=== PATIENT | female | born 1985 | race American Indian/Alaskan Native ===

== ENCOUNTER → 2017-08-23 | Emergency (ER) | payer SELFPAY | END | disposition left against medical advice (07) | LOC: ED 14:35 | DX: K08.89 Other specified disorders of teeth and supporting structures (principal); Z53.21 Procedure and treatment not carried out due to patient leaving prior to being seen by health care provider ==

== ENCOUNTER 2017-09-20 01:41 | Emergency (ER) | payer OTHER ==
[2017-09-20] MEDS ORDERED: TYLENOL PO ONE (02:29)
[2017-09-20] MEDS ORDERED: TORADOL IM ONE (03:54)
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
[2017-09-20 04:14] LABS: HCG Qualitative,Urine Negative (Negative)
[2017-09-20 04:16] LABS: Bilirubin,Urine NEG (Negative); Blood,Urine NEG (Negative); Color,Urine Yellow (Yellow); Mucus,Urine 3+ /HPF; Protein,Urine <15 mg/dL mg/dL (Negative)
[2017-09-20 04:43] VITALS: BP 123/69
== END 2017-09-20 04:44 | disposition home or self-care (01) ==
LOC: ED 01:41
DX: S16.1XXA Strain of muscle, fascia and tendon at neck level, initial encounter (principal); V87.7XXA Person injured in collision between other specified motor vehicles (traffic), initial encounter; Y93.89 Activity, other specified; Y92.89 Other specified places as the place of occurrence of the external cause; Y99.8 Other external cause status
CPT/HCPCS: 81001; 81025; 96372; 99283; J1885

== ENCOUNTER 2020-04-19 19:27 | Emergency (ER) | payer OTHER ==
[2020-04-19 20:09] LABS: Basophils % (Auto) 0.5 % (0.0-1.8); Eosinophils % (Auto) 0.5 % (0.0-4.3); Hematocrit 33.5 % (30.3-42.9); Lymphocytes # (Auto) 2.4 K/mm3 (1.2-5.4); Lymphocytes % (Auto) 27.7 % (13.4-35.0); Mean Corpuscular HGB Conc 36 % (30-34); Mean Corpuscular Volume 98 fl (79-97); Monocytes # (Auto) 0.5 K/mm3 (0.0-0.8); Monocytes % (Auto) 6.1 % (0.0-7.3); Platelet Count 300 K/mm3 (140-440); Red Blood Count 3.43 M/mm3 (3.65-5.03); Red Cell Distribution Width 13.4 % (13.2-15.2)
[2020-04-19 20:25] LABS: Bacteria,Urine 1+ /HPF (Negative); Bilirubin,Urine NEG (Negative); Blood,Urine NEG (Negative); Color,Urine Yellow (Yellow); Mucus,Urine 3+ /HPF
[2020-04-19 20:30] LABS: Alanine Aminotransferase 14 units/L (7-56); Albumin 4.7 g/dL (3.9-5); BUN/Creatinine Ratio 20; Blood Urea Nitrogen 10 mg/dL (7-17); Calcium 9.7 mg/dL (8.4-10.2); Hemolysis Index 1
[2020-04-19] MEDS ORDERED: SODIUM CHLORIDE 0.9% 1000 ML 1,000 ML IV ONE (21:06)
--- NOTE | 2020-04-19 21:11 | Emergency Department Report ---
ED General Adult HPI - General Chief complaint: Nausea/Vomiting/Diarrhea Stated complaint: BODY ACHE/EMESIS/DIZZINESS PUI?: No Time Seen by Provider: 04/19/20 21:05 Source: patient Mode of arrival: Ambulatory Limitations: No Limitations - History of Present Illness Initial comments: Patient is a 34-year-old female that presents emergency room with complaints of nausea vomiting, dizziness, body aches. Patient denies fever. Patient denies cough. Patient denies abdominal pain. Patient states she might be . Patient states her last period was 6 weeks ago. Patient states she is a G6, . Patient denies vaginal discharge. Patient denies dysuria. Patient denies chest pain and shortness of breath. Patient states her body ache and dizziness are better with rest and worse with exertion. Patient states her nausea is better with n.p.o. and worse with eating. Patient denies blood in her stool. Patient denies blood in her vomitus. Patient denies recent travel. Patient denies recent international travel. Patient denies exposure to the novel coronavirus. Patient denies sick contacts. Patient denies fever. Patient denies cough. Patient denies diarrhea. Patient denies coming in contact with anybody with symptoms of the novel coronavirus. -: Sudden Severity scale (0 -10): 4 Quality: aching Consistency: constant Improves with: rest Worsens with: movement Associated Symptoms: nausea/vomiting. denies: confusion, chest pain, cough, diaphoresis, headaches, loss of appetite, malaise - Related Data Previous Rx's Medication Instructions Recorded Last Taken Type Cyclobenzaprine [Flexeril] 10 mg PO BID PRN #20 tablet 09/20/17 Unknown Rx Menthol/Camphor [[place] 1 applicatio TP BID PRN #1 tube 09/20/17 Unknown Rx Ointment] Naproxen [Naprosyn TAB] 500 mg PO BID PRN #30 tablet 09/20/17 Unknown Rx Ferrous Sulfate [Feosol 325 MG tab] 325 mg PO BID 30 Days #60 tablet 04/03/18 Unknown Rx miSOPROStoL [Misoprostol] 200 mcg PO Q4H 3 Days #6 tablet 04/03/18 Unknown Rx oxyCODONE /ACETAMINOPHEN [Percocet 1 tab PO Q6HR PRN #20 tablet 04/03/18 Unknown Rx 5/325] Ibuprofen [Motrin 800 MG tab] 800 mg PO Q8HR PRN #30 tablet 08/22/19 Unknown Rx Nystas/Diphen/Xyl Visc/Mylanta 15 ml MM Q6H PRN #120 ml 08/22/19 Unknown Rx [Magic Mouthwash] Amoxicillin [Trimox CAP] 500 mg PO Q8H #21 capsule 04/20/20 Unknown Rx Ondansetron [Zofran Odt] 4 mg PO Q6HR PRN #20 tab.rapdis 04/20/20 Unknown Rx Allergies Allergy/AdvReac Type Severity Reaction Status Date / Time No Known Allergies Allergy Verified 04/03/18 11:00 ED Review of Systems ROS: Stated complaint: BODY ACHE/EMESIS/DIZZINESS Other details as noted in HPI Constitutional: see HPI Eyes: denies: eye pain, eye discharge, vision change ENT: denies: ear pain, throat pain Respiratory: denies: cough, shortness of breath, wheezing Cardiovascular: denies: chest pain, palpitations Endocrine: no symptoms reported Gastrointestinal: nausea, vomiting. denies: abdominal pain, diarrhea, constipation, hematemesis, melena, hematochezia Genitourinary: denies: urgency, dysuria, discharge Musculoskeletal: denies: back pain, joint swelling, arthralgia Skin: denies: rash, lesions Neurological: as per HPI. denies: headache, weakness, paresthesias Psychiatric: denies: anxiety, depression Hematological/Lymphatic: denies: easy bleeding, easy bruising ED Past Medical Hx - Past Medical History Previous Medical History?: No - Surgical History Past Surgical History?: No Additional Surgical History: - Family History Family history: no significant - Social History Smoking Status: Never Smoker Substance Use Type: None - Medications Home Medications: Home Medications Medication Instructions Recorded Confirmed Last Taken Type Cyclobenzaprine [Flexeril] 10 mg PO BID PRN #20 tablet 09/20/17 Unknown Rx Menthol/Camphor [[place] 1 applicatio TP BID PRN #1 tube 09/20/17 Unknown Rx Ointment] Naproxen [Naprosyn TAB] 500 mg PO BID PRN #30 tablet 09/20/17 Unknown Rx Ferrous Sulfate [Feosol 325 MG tab] 325 mg PO BID 30 Days #60 tablet 04/03/18 Unknown Rx miSOPROStoL [Misoprostol] 200 mcg PO Q4H 3 Days #6 tablet 04/03/18 Unknown Rx oxyCODONE /ACETAMINOPHEN [Percocet 1 tab PO Q6HR PRN #20 tablet 04/03/18 Unknown Rx 5/325] Ibuprofen [Motrin 800 MG tab] 800 mg PO Q8HR PRN #30 tablet 08/22/19 Unknown Rx Nystas/Diphen/Xyl Visc/Mylanta 15 ml MM Q6H PRN #120 ml 08/22/19 Unknown Rx [Magic Mouthwash] Amoxicillin [Trimox CAP] 500 mg PO Q8H #21 capsule 04/20/20 Unknown Rx Ondansetron [Zofran Odt] 4 mg PO Q6HR PRN #20 tab.rapdis 04/20/20 Unknown Rx ED Physical Exam - General Limitations: No Limitations General appearance: alert, in no apparent distress - Head Head exam: Present: atraumatic, normocephalic - Eye Eye exam: Present: normal appearance - ENT ENT exam: Present: mucous membranes moist - Neck Neck exam: Present: normal inspection - Respiratory Respiratory exam: Present: normal lung sounds bilaterally. Absent: respiratory distress - Cardiovascular Cardiovascular Exam: Present: regular rate, normal rhythm. Absent: systolic murmur, diastolic murmur, rubs, gallop - GI/Abdominal GI/Abdominal exam: Present: soft, normal bowel sounds. Absent: distended, tenderness, guarding - Rectal Rectal exam: Present: deferred - Extremities Exam Extremities exam: Present: normal inspection - Back Exam Back exam: Present: normal inspection, muscle spasm. Absent: tenderness - Neurological Exam Neurological exam: Present: alert, oriented X3 - Psychiatric Psychiatric exam: Present: normal affect, normal mood - Skin Skin exam: Present: warm, dry, intact, normal color. Absent: rash ED Course Vital Signs 04/19/20 04/19/20 04/19/20 19:34 20:55 21:00 Temperature 98.3 F Pulse Rate 83 61 65 Respiratory 20 17 17 Rate Blood Pressure 121/69 103/58 108/59 Blood Pressure 103/58 [Left] O2 Sat by Pulse 100 100 100 Oximetry 04/19/20 04/19/20 04/19/20 21:30 21:46 22:00 Temperature Pulse Rate 76 66 70 Respiratory 13 14 17 Rate Blood Pressure 107/68 96/44 95/51 Blood Pressure [Left] O2 Sat by Pulse 100 100 100 Oximetry 04/19/20 23:00 Temperature Pulse Rate 76 Respiratory 18 Rate Blood Pressure 97/54 Blood Pressure [Left] O2 Sat by Pulse 100 Oximetry - Reevaluation(s) Reevaluation #1: Patient states her nausea is better. Patient tolerated p.o. intake. Patient states she is feeling better. 04/19/20 22:18 Reevaluation #2: I discussed results with patient. I discussed the need for an ultrasound with patient. Patient agrees with plan of care. 04/19/20 23:18 Reevaluation #3: Patient states she is feeling much better. Patient denies dizziness. Patient denies nausea and vomiting. Patient denies body aches. Patient still tolerating p.o. intake. I discussed all results and clinical findings with patient. I discussed plan of care with patient. Patient agrees with plan of care. Patient is stable for discharge. Patient will be discharged home. Patient given discharge instructions. Patient voiced understanding of discharge instructions. 04/20/20 00:12 ED Medical Decision Making - Lab Data Result diagrams: 04/19/20 19:55 04/19/20 19:55 - Radiology Data Radiology results: report reviewed ULTRASOUND OBSTETRIC INDICATION / CLINICAL INFORMATION: PREG. N/V. TECHNIQUE: Transabdominal. COMPARISON: None available. FINDINGS: GESTATIONAL SAC: Well-defined oval shape and intrauterine in location. YOLK SAC: No significant abnormality. EMBRYO/FETUS: No significant abnormality. - [place]-Rump Length = 2.0 cm = 8 weeks, 4 day(s). - Heart Rate, beats per minute (if present) = 185 ADNEXA: 1.8 cm right ovarian follicular cyst. FREE FLUID: None. ADDITIONAL FINDINGS: Cervical length 5.9 cm IMPRESSION: 1. Single, living intrauterine with estimated sonographic age of 8 weeks, 4 day(s). - Medical Decision Making Patient is a 35-year-old female that presents emergency room with complaints of dizziness, nausea and vomiting and body aches. Patient given fluids and antiemetics. Patient's symptoms essentially resolved prior to discharge. Patient had labs done which were essentially unremarkable except for a positive hCG. Patient had an elevated serum quantitative hCG. Patient had a transvaginal ultrasound to rule out or rule in IUP. Patient's ultrasound was positive for an 8 weeks IUP. Patient is stable for discharge. Patient given discharge instructions. - Differential Diagnosis iup, n/v, gastroenteritis, uti, dizziness Critical care attestation.: If time is entered above; I have spent that time in minutes in the direct care of this critically ill patient, excluding procedure time. ED Disposition Clinical Impression: Dizziness, Nausea and vomiting during prior to 22 weeks gestation Qualifiers: Weeks of gestation: 8 weeks Qualified Code(s): Z3A.08 - 8 weeks gestation of UTI (urinary tract infection) Qualifiers: Urinary tract infection type: acute cystitis Hematuria presence: with hematuria Qualified Code(s): N30.01 - Acute cystitis with hematuria Disposition: TO HOME OR SELFCARE Is pt being admited?: No Does the pt Need Aspirin: No Condition: Stable Instructions: (ED), Hyperemesis Gravidarum (ED), Morning Sickness (ED), Threatened Miscarriage (ED), Urinary Tract Infection in Women (ED) Additional Instructions: Patient to follow-up with primary care in 2 to 3 days. Patient to follow-up with [facility] in 2 to 3 days. Patient to rest. Patient to increase water. Patient to avoid strenuous exercise or heavy lifting until cleared by [facility]. Nothing per vagina until cleared by [facility]. Patient started a vitamin. Patient to take Tylenol as needed for pain. Patient to take meds as directed. Patient to return to the ER if condition worsens, changes or new symptoms arise. Prescriptions: Amoxicillin [Trimox CAP] 500 mg PO Q8H #21 capsule Ondansetron [Zofran Odt] 4 mg PO Q6HR PRN #20 tab.rapdis PRN Reason: Nausea And Vomiting Referrals: PRIMARY CARE, [Primary Care Provider] - 2-3 Days REILLY HARTMAN MD [Staff Physician] - 2-3 Days Time of Disposition: 00:25
[2020-04-19] MEDS ORDERED: ONDANSETRON 4 MG/2 ML INJ IV ONE (21:47)
[2020-04-19] MEDS ORDERED: ONDANSETRON 4 MG/2 ML INJ ONE (21:49)
--- NOTE | 2020-04-20 00:08 | Ultrasound Report ---
ULTRASOUND OBSTETRIC INDICATION / CLINICAL INFORMATION: PREG. N/V. TECHNIQUE: Transabdominal. COMPARISON: None available. FINDINGS: GESTATIONAL SAC: Well-defined oval shape and intrauterine in location. YOLK SAC: No significant abnormality. EMBRYO/FETUS: No significant abnormality. - [place]-Rump Length = 2.0 cm = 8 weeks, 4 day(s). - Heart Rate, beats per minute (if present) = 185 ADNEXA: 1.8 cm right ovarian follicular cyst. FREE FLUID: None. ADDITIONAL FINDINGS: Cervical length 5.9 cm IMPRESSION: 1. Single, living intrauterine with estimated sonographic age of 8 weeks, 4 day(s). Signer Name: Tolu Quintana MD Signed: 04/20/2020 12:04 AM Workstation Name: [id number] / [id number]
[2020-04-20 01:19] VITALS: BP 103/68
== END 2020-04-20 00:40 | disposition home or self-care (01) ==
LOC: ED 19:27
DX: O21.8 Other vomiting complicating pregnancy (principal); O23.41 Unspecified infection of urinary tract in pregnancy, first trimester; O26.891 Other specified pregnancy related conditions, first trimester; R42 Dizziness and giddiness; Z3A.08 8 weeks gestation of pregnancy; Z98.890 Other specified postprocedural states; Z79.1 Long term (current) use of non-steroidal anti-inflammatories (NSAID); Z79.2 Long term (current) use of antibiotics; Z79.899 Other long term (current) drug therapy
CPT/HCPCS: 36415; 76801; 80053; 81001; 84702; 84703; 85025; 87086; 96361; 96374; 99284; J2405; J7030

== ENCOUNTER 2021-02-18 00:09 | Emergency (ER) | payer OTHER ==
[2021-02-18] MEDS ORDERED: IBUPROFEN 600 MG TAB PO ONE (02:19)
[2021-02-18 02:54] VITALS: BP 112/62
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
== END 2021-02-18 04:28 | disposition home or self-care (01) ==
LOC: ED 00:09
DX: S62.525A Nondisplaced fracture of distal phalanx of left thumb, initial encounter for closed fracture (principal); F17.200 Nicotine dependence, unspecified, uncomplicated; Z98.890 Other specified postprocedural states; Y04.8XXA Assault by other bodily force, initial encounter; Y93.89 Activity, other specified; Y92.89 Other specified places as the place of occurrence of the external cause; Y99.8 Other external cause status
CPT/HCPCS: 99283